=== PATIENT | male | born 1975 | race Caucasian/White ===

== ENCOUNTER → 2023-10-10 | Outpatient (CLI) | payer MEDICARE, MEDICAID, SELFPAY ==
--- NOTE | 2023-10-10 08:03 | CT_ITS ---
STUDY: CT MAXILLOFACIAL SINUSES REASON FOR EXAM: Male, 48 years old. NASAL POLYP RADIATION DOSAGE (If Supplied By Facility): CTDIvol = ( 33.06 ) mGy, DLP = ( 842.11 ) mGycm TECHNIQUE: The patient was scanned in a multi detector CT scanner. High resolution axial imaging was performed without the administration of intravenous contrast material. Sagittal and coronal images were reconstructed. Individualized dose optimization techniques were used for this CT. COMPARISON: None. FINDINGS: There are small submental lymph nodes. FRONTAL SINUSES: Mucosal thickening of the left frontal sinus. ETHMOIDAL SINUSES: Opacification of the ethmoid sinuses bilaterally. MAXILLARY SINUSES: There is opacification of the left maxillary sinus. Partial opacification of the right maxillary sinus. SPHENOIDAL SINUSES: Partial opacification of the right sphenoid sinus. Mild opacification of the left sphenoid sinus. There is soft tissue prominence at the level of both ostiomeatal complexes causing obstruction. Normal bilateral middle turbinates. There is hypertrophy of the left inferior nasal turbinate. There is a right sided nasal septal deviation, but without a nasal septal spur. Soft tissue prominence in both nasal fossa more prominent on the left side. The visualized osseous structures are normal. The visualized bilateral orbital contents are normal. CT/Sinus/Facial Bone IMPRESSION: Pansinusitis. Soft tissue prominence in both nasal fossa more prominent on the left side. Nasal septal deviation towards the right side of the midline. Electronically Signed: Ashutosh Ceballos MD at 10:30 EDT ,
== END | disposition home or self-care (01) ==
LOC: CT 08:00
PROVIDERS: Referring Provider Otolaryngology; Visit Provider Otolaryngology
DX: J33.0 Polyp of nasal cavity (principal)
CPT/HCPCS: 70486

== ENCOUNTER → 2023-12-02 | Outpatient (CLI) | payer MEDICARE, MEDICAID, SELFPAY ==
--- NOTE | 2023-12-02 10:30 | NASAL_PTH ---
PATIENT: LEYLA WHITMORE LOC: [facility] U#:[id number] AGE/SX: 48/M ROOM: RE12/02/[address]: Dr. Arturo Batista MD : 1975 BED: DIS: 12/02/2023 SPEC #: [id number] RECD: 12/02/23 14:58 STATUS: MISA CRISTINA #: [id number] CHRISTINA: 12/02/23 10:[address]: Arturo Batista DEPT: SURGICAL PATHOLOGY RECD BY: Sharron Rivas ENTERED: 12/03/23 09:30 SP TYPE: NASAL SPEC OTHR DR: Cherrie Primary Care Phys Tissues: A - Ethmoid sinus, NOS B - Ethmoid sinus, NOS Procedures: Decalcification bone/plaque Surgery Specimen Level IV HEADER OPERATION: Septoplasty, resection of inferior turbinates PRE-OP DIAGNOSIS: Polyp of nasal cavity, other chronic sinusitis, nasal congestion TISSUE SUBMITTED: A- Right sinus contents, B- Left sinus contents MICROSCOPIC DIAGNOSIS A. Right sinus contents: Fragments of respiratory mucosa with chronic inflammation and bone. B. Left sinus contents: Fragments of respiratory mucosa with chronic inflammation and bone. / 12/08/2023 MICROSCOPIC DESCRIPTION Slides are reviewed. GROSS DESCRIPTION A. Received in fixative is one container labeled with the patient's name and designated Right sinus contents. The specimen consists of multiple irregular and gritty fragments of pink-humphreys soft tissue measuring in aggregate 2.2 x 2.0 x 0.2cm. The specimen is submitted in its entirety in one cassette after decalcification. B. Received in fixative is one container labeled with the patient's name and designated Left sinus contents. The specimen consists of multiple irregular and gritty fragments of pink-humphreys soft tissue measuring in aggregate 2.0 x 2.0 x 0.2cm. The specimen is submitted in its entirety in one cassette after decalcification. AM/mr 12/02 TC:3 CPT:[id number]
== END | disposition home or self-care (01) ==
PROVIDERS: Visit Provider Otolaryngology
DX: J33.0 Polyp of nasal cavity (principal); J32.9 Chronic sinusitis, unspecified; R09.81 Nasal congestion
CPT/HCPCS: 88305; 88311

== ENCOUNTER → 2023-12-17 | Outpatient (CLI) | payer MEDICARE, MEDICAID, SELFPAY ==
[2023-12-17 12:36] LABS: Absolute Lymphocyte Count 2.18 X10^3/uL (0.83-4.51); Basophil# 0.09 X10^3/uL; Basophil% 1.4 % (0-1); Eosinophil# 0.43 X10^3/uL; Eosinophils% 6.8 % (0-5); Hematocrit 47.6 % (40-54); Hemoglobin 15.6 g/dL (13.0-16.5); Lymphocyte # 2.18 X10^3/ul (0.83-4.51); Lymphocyte % 34.4 % (19-41); Mean Corp Hgb Conc 32.8 g/dL (32-36); Mean Corpuscular Hgb 28.9 pg (27.0-32.0); Mean Corpuscular Volume 88.1 fL (80-94); Mean Platelet Vol. 10.5 fl (6.2-12.0); Monocyte# 0.67 X10^3/uL; Monocyte% 10.6 % (0-10); NRBC Flagged by Analyzer 0 % (0-5); Neutrophil # 2.96 X10^3/uL (2.7-7.7); Neutrophil % 46.6 % (47-70); Platelet Count 252 K/mm3 (150-450); RBC Distribution Width CV 14.2 % (11.6-14.6); RBC Distribution Width SD 45.1 fl (35.1-43.9); White Blood Count 6.3 K/mm3 (4.4-11.0)
[2023-12-17 13:14] LABS: ALB/GLOB Ratio 0.9 RATIO (0.9-2.4); AST(SGOT) 25 U/L (15-37); Alanine Aminotransfer ALT/SGPT 36 U/L (16-61); Albumin, Serum 3.3 g/dL (3.2-5.0); Alkaline Phosphatase 116 U/L (45-117); Anion Gap 4 (5-15); BUN 11 mg/dL (7-18); BUN/Creat Ratio 12.4 RATIO (10-20); Chloride 109 mmol/L (98-107); Cholesterol 181 mg/dL (200); Creatinine, Serum 0.89 mg/dL (0.70-1.30); EST Glomerular Filtration Rate 98 mL/min (>60); Est Glom Filt Rate - Afr Amer 118 mL/min (>60); Globulin 3.8 g/dL (2.2-4.2); Glucose 90 mg/dL (74-106); High Density Lipoprotein 38 mg/dL; Magnesium 2.3 mg/dL (1.6-2.6); Potassium 4.4 mmol/L (3.5-5.1); Protein, Total 7.1 g/dL (6.4-8.2); Sodium Level 138 mmol/L (136-145); T4 Free Direct 0.82 ng/dL (0.76-1.46); Thyroid Stim Hormone (TSH) 4.62 uIU/mL (0.358-3.74); Triglycerides 170 mg/dL; Very Low Density Lipoprotein 34 mg/dL (5-40)
== END | disposition home or self-care (01) ==
LOC: BIMLAB 07:58
PROVIDERS: PCP Nurse Practitioner; Referring Provider Nurse Practitioner; Visit Provider Nurse Practitioner
DX: R00.2 Palpitations (principal); E78.00 Pure hypercholesterolemia, unspecified; E03.9 Hypothyroidism, unspecified
CPT/HCPCS: 36415; 80053; 80061; 83735; 84439; 84443; 85025

== ENCOUNTER → 2023-12-24 | Outpatient (CLI) | payer MEDICARE, MEDICAID, SELFPAY | END | disposition home or self-care (01) | LOC: PSN 08:04 | PROVIDERS: PCP Nurse Practitioner; Referring Provider Nurse Practitioner; Visit Provider Nurse Practitioner | DX: R00.2 Palpitations (principal) | CPT/HCPCS: 93225; 93226 ==

== ENCOUNTER 2024-06-30 18:28 | Emergency (ER) | payer MEDICARE, MEDICAID, SELFPAY ==
[2024-06-30 18:29] VITALS: BP 161/100; PULSE 130; RESP 22; TEMP 36.3; O2SAT 97; BMI 42.0
--- NOTE | 2024-06-30 18:54 | RAD_ITS ---
INDICATION: cough EXAMINATION/TECHNIQUE: X-RAY - XR Chest 2 Views COMPARISON: FINDINGS: LINES/DEVICES: None. LUNGS: No consolidation, edema or effusion. No pneumothorax. MEDIASTINUM AND CARDIOVASCULAR STRUCTURES: Cardiac silhouette not enlarged. Central airways and mediastinal contour are unremarkable. BONES AND SOFT TISSUES: Unremarkable. RAD/Chest PA and Lateral IMPRESSION: No radiographic evidence of acute cardiopulmonary disease. Electronically Signed: Nina Shannon MD at 19:49 EST Reading Location ID and State: [id number] / Tel , Service support ,
--- NOTE | 2024-06-30 18:55 | EDS_ITS ---
HPI History of Present Illness Chief Complaint: Cold Sx Informant: patient Narrative Narrative: 2-day history of cough, congestion myalgias. States producing sputum. States that a taoist where people are in and out with illnesses. Denies diabetes history. Asthma history. Sore throat. Posttussive emesis. No diarrhea. No urinary symptoms. No flu vaccination this year. Was nauseated earlier. [facility] Medical History Heart palpitations Sleep apnea Thyroid disease GERD (gastroesophageal reflux disease) High cholesterol Back problem Asthma Seasonal allergies Home Medications ?Medication ?Instructions ?Recorded ?Last Taken ?Type multivitamin 1 tab PO DAILY 12/16/23 Unknown History atorvastatin 40 mg tablet 40 mg PO QDAY #90 tabs 06/17/24 Unknown Rx fluticasone fur. 100 mcg-umeclid 1 inh inhalation DAILY #28 ea 06/17/24 Unknown Rx 62.5 mcg-vilant 25 mcg inhalat.powder (Trelegy Ellipta) ipratropium 20 mcg-albuterol 100 1 puff inhalation 4X/DAY #4 grams 06/17/24 Unknown Rx mcg/actuation mist for inhalation (Combivent Respimat) levothyroxine 50 mcg tablet 50 mcg PO QDAY #90 tabs 06/17/24 Unknown Rx pantoprazole 40 mg tablet,delayed 40 mg PO DAILY #90 tabs 06/17/24 Unknown Rx release (Protonix) duloxetine 30 mg capsule,delayed 30 mg PO BID 06/30/24 Unknown History release ondansetron 4 mg disintegrating 4 mg PO Q8H PRN PRN Nausea #10 tabs 06/30/24 Unknown Rx tablet Allergy/AdvReac Type Severity Reaction Status Date / Time No Known Allergies Allergy Verified 06/30/24 18:29 Family History Brother Anxiety Depressed Mother Anxiety Depressed Seizures CVA (cerebral vascular accident) Thyroid disorder Father Arthritis Depressed Suicide attempt Aunt Diabetes Grandmother Arthritis Surgical History History of nasal surgery History of back surgery Social History housing: 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[employer] current occupational status: disabled Smoking Status: Current some day smoker tobacco type: cigars Tobacco: How many years used: 30 Smokeless tobacco user: other alcohol intake: never substance use type: does not use what type of physical activity do you participate in: none seatbelt use: always do you feel safe at home: Yes ROS ROS ED Constitutional Constitutional ED: Denies chills, fever(s) or sweats ENT ENT ED: Reports sore throat Cardiovascular Cardiovascular: Denies chest pain, leg edema, palpitations or racing heartbeat Respiratory/Chest Respiratory/Chest: Reports cough; Denies dyspnea or dyspnea on exertion Gastrointestinal Gastrointestinal: Reports nausea and vomiting; Denies abdominal pain or diarrhea Genitourinary Genitourinary ED: Denies dysuria, hematuria or urinary frequency Musculoskeletal Musculoskeletal: Reports myalgias; Denies back pain, extremity pain or neck pain Integumentary Denies rash or wounds Neurologic Neurologic: Denies headache(s), paresthesias or weakness EXAM Physical Exam Const Vital Signs: 06/30/24 18:29 06/30/24 19:47 06/30/24 20:29 Temperature 97.4 F L Temperature Source Temporal Pulse Rate 130 H 114 H Respiratory Rate 22 H Respiratory Effort Short of Breath Labored Respiratory Pattern Tachypnea Blood Pressure 161/100 H Blood Pressure Mean 120 Pulse Ox 97 Oxygen Delivery Method Room Air 06/30/24 20:40 Temperature 97.8 F Temperature Source Pulse Rate 114 H Respiratory Rate 16 Respiratory Effort Respiratory Pattern Blood Pressure 131/98 H Blood Pressure Mean 109 Pulse Ox 95 Oxygen Delivery Method Positive well nourished and well developed General Appearance ED: well developed and NAD HEENT Reports moist mucous membranes HEENT Narrative: Mild posterior pharyngeal erythema. TMs normal bilaterally. normocephalic and atraumatic Eyes General Eye ED: Yes normal appearance of both eyes Neck full ROM Chest Wall Chest: Negative for tenderness Resp normal respiratory effort and normal air movement Effort and Inspection: symmetric chest movement; Negative for respiratory distress Cardio regular rhythm and no murmurs Rate: tachycardic Peripheral Pulses: pulses 2+ throughout GI normal to inspection, nondistended, normoactive bowel sounds and non-tender Palpation: Negative for guarding or rebound tenderness present Extremity normal to inspection General Extremety ED: Negative for edema or tenderness General Extremity: Negative for edema Neuro oriented x3, CN's II-XII intact bilaterally and no sensory deficits noted Sensorium / Orientation: awake and alert Skin no rashes or lesions noted and no wounds MDM MDM MDM Narrative Medical decision making narrative: Interventions / MDM: Differential diagnosis: Viral syndrome, sinus tachycardia Diagnosis considered but do not suspect: Pneumonia however x-ray negative. My EKG interpretation: N/A Imaging independently reviewed and interpreted by myself: 2 view chest x-ray: No acute process. External documents reviewed: N/A Test considered but not ordered:N/A ED course: Patient sore throat cough. Tachycardic on arrival however nontoxic. Will send for viral swabs, strep sent. Chest x-ray ordered. Oral Zofran and dexamethasone ordered for symptom control. 2000: 2 view chest x-ray shows no acute process. Heart rate improving on reevaluation. Nontoxic. COVID, RSV, influenza negative. Discussed viral syndrome. Continue Tylenol and Motrin. Discussed use humidifier and vapor rubs. Outpatient follow-up. All questions were answered. Re-evaluation: stable Disposition discussed with patient/family/significant other: Patient and significant other Case discussed with consulting clinician: N/A This note was generated with Share[employer] dictation software. It may contain incorrect words, spelling, and punctuation that were not noted in checking the note before signing. Radiography Diagnostic Testing: Clinical Impression(s) from Imaging Studies Chest X-Ray 06/30/24 18:54 IMPRESSION: No radiographic evidence of acute cardiopulmonary disease. Electronically Signed: Nina Shannon MD at 19:49 EST Reading Location ID and State: [id number] / Tel , Service support , Discharge Plan Triage Chief Complaint: Cold Sx ED Provider: Alberto Pagan Dx/Rx/DC Orders Clinical Impression: Viral URI with cough, Bronchitis Instructions: ED Bronchitis, No Antibiotic (Adult), ED Pharyngitis, Viral Prescriptions: New ondansetron 4 mg tablet,disintegrating 4 mg PO Q8H PRN PRN (Reason: Nausea) Qty: 10 0RF No Action multivitamin Tablet 1 tab PO DAILY duloxetine 30 mg capsule,delayed release(DR/EC) 30 mg PO BID atorvastatin 40 mg tablet 40 mg PO QDAY Qty: 90 0RF Trelegy Ellipta 100-62.5-25 mcg blister with device 1 inh inhalation DAILY Qty: 28 2RF Combivent Respimat 20-100 mcg/actuation mist 1 puff inhalation 4X/DAY Qty: 4 2RF levothyroxine 50 mcg tablet 50 mcg PO QDAY Qty: 90 0RF pantoprazole [Protonix] 40 mg tablet,delayed release (DR/EC) 40 mg PO DAILY Qty: 90 0RF Primary Care Provider: Leslie Cleary Referrals: Leslie Cleary, [employer] [Primary Care Provider] - 1-2 Weeks Activity Restrictions/Additional Instructions: Chest x-ray negative. COVID, influenza, RSV negative. Continue oral fluids hydration. Tylenol or Motrin as needed. [place] fire and vapor rub can help with cough symptoms. Use Zofran as needed. Follow-up with your doctor. Print Language: Urdu Disposition Disposition: Home, Self Care Discharge Date/Time: 06/30/24 20:41
[2024-06-30] MEDS: dexAMETHasone 4 MG Tablet 12 MG PO (19:10)
[2024-06-30] MEDS: Ondansetron ODT 4 MG Tablet PO (19:10)
[2024-06-30 20:29] VITALS: PULSE 114
[2024-06-30 20:40] VITALS: BP 131/98; PULSE 114; RESP 16; TEMP 36.6; O2SAT 95
== END 2024-06-30 20:41 | disposition home or self-care (01) ==
PROVIDERS: Emergency Provider Emergency Medicine; PCP Nurse Practitioner; Visit Provider Emergency Medicine
DX: J06.9 Acute upper respiratory infection, unspecified (principal); J45.909 Unspecified asthma, uncomplicated; E07.9 Disorder of thyroid, unspecified; K21.9 Gastro-esophageal reflux disease without esophagitis; E78.00 Pure hypercholesterolemia, unspecified; Z79.899 Other long term (current) drug therapy; Z79.51 Long term (current) use of inhaled steroids; Z79.890 Hormone replacement therapy; F17.290 Nicotine dependence, other tobacco product, uncomplicated
CPT/HCPCS: 71046; 87631; 87651; 99282

== ENCOUNTER → 2024-11-17 | Outpatient (CLI) | payer MEDICARE, MEDICAID, SELFPAY | END | disposition home or self-care (01) | LOC: SL 20:22 | PROVIDERS: PCP Internal Medicine; Referring Provider Internal Medicine; Visit Provider Internal Medicine | DX: G47.33 Obstructive sleep apnea (adult) (pediatric) (principal) | CPT/HCPCS: 95811 ==

== ENCOUNTER → 2024-12-14 | Outpatient (CLI) | payer MEDICARE, MEDICAID, SELFPAY | END | disposition home or self-care (01) | LOC: SL 12:03 | PROVIDERS: PCP Internal Medicine; Visit Provider Internal Medicine | DX: Z46.89 Encounter for fitting and adjustment of other specified devices (principal) ==

== ENCOUNTER → 2025-04-08 | Outpatient (CLI) | payer MEDICARE, MEDICAID, SELFPAY ==
[2025-04-08 08:58] LABS: Hematocrit 47.4 % (40-54); Hemoglobin 16.0 g/dL (13.0-16.5); Immature Granulocytes Count 0.020 X10^3/uL (0.0-0.0); Mean Corp Hgb Conc 33.8 g/dL (32-36); Mean Corpuscular Volume 85.7 fL (80-94); Mean Platelet Vol. 10.2 fl (6.2-12.0); NRBC Flagged by Analyzer 0 % (0-5); Platelet Count 262 K/mm3 (150-450); RBC Distribution Width CV 13.5 % (11.6-14.6); RBC Distribution Width SD 42.2 fl (35.1-43.9); Red Blood Count 5.53 M/mm3 (4.6-6.2); White Blood Count 6.6 K/mm3 (4.4-11.0)
[2025-04-08 09:38] LABS: AST(SGOT) 22 U/L (<=37); Alanine Aminotransfer ALT/SGPT 20 U/L (<=46); Albumin, Serum 3.7 g/dL (3.5-5.0); Alkaline Phosphatase 91 U/L (40-129); Anion Gap 12 (5-15); BUN 13 mg/dL (4-19); BUN/Creat Ratio 15.3 RATIO (10-20); Calcium,Total 8.7 mg/dL (7.6-11.0); Carbon Dioxide 19.3 mmol/L (21.0-32.0); Chloride 107 mmol/L (98-108); Cholesterol 165 mg/dL (<=200); Globulin 2.7 g/dL (2.2-4.2); Glucose 89 mg/dL (70-99); Low Density Lipoprotein Calc. 92 mg/dL; Potassium 4.3 mmol/L (3.3-5.1); Triglycerides 137 mg/dL; Very Low Density Lipoprotein 27 mg/dL (5-40); cholesterol:hdl ratio screen 3.61
== END | disposition home or self-care (01) ==
LOC: LAB 07:59
PROVIDERS: PCP Internal Medicine; Referring Provider Internal Medicine; Visit Provider Internal Medicine
DX: E07.9 Disorder of thyroid, unspecified (principal); K21.9 Gastro-esophageal reflux disease without esophagitis; E78.00 Pure hypercholesterolemia, unspecified
CPT/HCPCS: 36415; 80053; 80061; 84443; 85025